=== PATIENT | male | born 1960 | race Hispanic/Latino ===

== ENCOUNTER 2019-08-19 11:45 | Outpatient (CLI) | payer BC ==
--- NOTE | 2019-08-19 13:32 | XRay Report ---
Right foot radiographs / XR foot 3+V RT INDICATION: S92.521A DISPLACED FRACTURE OF MIDDLE PHALANX OF RIGHT LESSER TOE. COMPARISON: None. FINDINGS: AP, lateral and oblique views of the right foot demonstrate intact bony articulation. No f ocal suspicious erosions. Slight degenerative changes at the interphalangeal joint of the great toe q uestioned. IMPRESSION: No acute osseous or soft tissue abnormality. Thank you for the opportunity to participate in this patient's care. Signer Name: Verona Field Signed: 08/19/2019 1:27 PM Workstation Name: [id number]
== END 2019-08-19 11:46 | disposition home or self-care (01) ==
LOC: XRAY 11:45
PROVIDERS: ATTEND Internal Medicine
DX: S92.521A Displaced fracture of middle phalanx of right lesser toe(s), initial encounter for closed fracture (principal); X58.XXXA Exposure to other specified factors, initial encounter; Y93.89 Activity, other specified; Y92.89 Other specified places as the place of occurrence of the external cause; Y99.8 Other external cause status

== ENCOUNTER 2019-09-22 12:13 | Outpatient (CLI) | payer BC ==
--- NOTE | 2019-09-22 17:44 | XRay Report ---
RIGHT FOOT 3 VIEW(S) INDICATION / CLINICAL INFORMATION: TOE FX COMPARISON: Right foot radiograph 08/19/2019 FINDINGS: Overlying bandage material obscures bone and soft tissue detail, particularly with regard t o the middle toe. Within this limitation, no fracture or osseous malalignment is identified. Repeatin g the radiograph after removal of the bandage may be more helpful. Also consider dedicated radiograph s of the toe and question rather than the entire foot. Signer Name: Ray Turcios MD Signed: 09/22/2019 5:40 PM Workstation Name: [id number]
== END 2019-09-22 12:14 | disposition home or self-care (01) ==
LOC: XRAY 12:13
PROVIDERS: ATTEND Podiatrist Foot & Ankle Surgery
DX: S92.521A Displaced fracture of middle phalanx of right lesser toe(s), initial encounter for closed fracture (principal); X58.XXXA Exposure to other specified factors, initial encounter; Y93.89 Activity, other specified; Y92.89 Other specified places as the place of occurrence of the external cause; Y99.8 Other external cause status

== ENCOUNTER 2019-10-21 07:58 | Outpatient (CLI) | payer BC ==
--- NOTE | 2019-10-21 11:13 | XRay Report ---
RIGHT FOOT HISTORY: Displaced fracture of middle phalanx of right lesser toe. COMPARISON: 09/22/2019 and 08/19/2019. TECHNIQUE: 2 views of the right foot were obtained. FINDINGS: A fiberglass splint has been removed since the last exam. Bones: No fracture or dislocation. Joint spaces: Maintained. Soft tissues: No significant abnormality. Additional findings: None. IMPRESSION: 1. No significant abnormality. Signer Name: Chidi Ann MD Signed: 10/21/2019 11:09 AM Workstation Name: [id number]
== END 2019-10-21 07:59 | disposition home or self-care (01) ==
LOC: XRAY 07:58
PROVIDERS: ATTEND Podiatrist Foot & Ankle Surgery
DX: S92.521D Displaced fracture of middle phalanx of right lesser toe(s), subsequent encounter for fracture with routine healing (principal); X58.XXXD Exposure to other specified factors, subsequent encounter

== ENCOUNTER 2019-11-18 07:35 | Outpatient (CLI) | payer BC ==
--- NOTE | 2019-11-18 10:45 | XRay Report ---
RIGHT FOOT 3 VIEWS INDICATION / CLINICAL INFORMATION: Closed fracture of right foot. COMPARISON: 2 views of the right foot from 10/21/2019. FINDINGS: BONES and JOINT(S): No acute fracture or subluxation. No significant arthritis. SOFT TISSUES: No significant abnormality. ADDITIONAL FINDINGS: None. IMPRESSION: No significant abnormality of the right foot. Signer Name: Les Sheehan MD Signed: 11/18/2019 10:40 AM Workstation Name: [id number]
== END 2019-11-18 07:36 | disposition home or self-care (01) ==
LOC: XRAY 07:35
PROVIDERS: ATTEND Podiatrist Foot & Ankle Surgery
DX: S92.521D Displaced fracture of middle phalanx of right lesser toe(s), subsequent encounter for fracture with routine healing (principal); X58.XXXD Exposure to other specified factors, subsequent encounter